=== PATIENT | female | born 1940 | race Caucasian/White ===

== ENCOUNTER 2023-11-21 14:45 | Emergency (ER) | payer MEDICARE ==
[2023-11-21] MEDS ORDERED: Acetaminophen 325 MG TAB ONE (15:22)
== END 2023-11-21 16:30 | disposition home or self-care (01) ==
LOC: MADERS 14:45
DX: S00.03XA Contusion of scalp, initial encounter (principal); M25.551 Pain in right hip; I10 Essential (primary) hypertension; W01.198A Fall on same level from slipping, tripping and stumbling with subsequent striking against other object, initial encounter
CPT/HCPCS: 70450; 72125